=== PATIENT | female | born 1945 | race African-American/Black ===

== ENCOUNTER → 2021-08-30 | Outpatient (CLI) | payer MEDICARE, BC ==
[~2021-08-30] MED LIST: CYMBALTA30 MG PO; FLECAINIDE ACET50 M1 PO; OMEPRAZOLE 20 M20 M1 PO; SYMBICORT160 MCG/4. INH; VENTOLIN HFA 1818 GM INH; XANAX 0.5 MG0.5 MG PO
== END ==
LOC: M.LAB 13:17
PROVIDERS: ATTEND Internal Medicine Gastroenterology
DX: Z20.822 Contact with and (suspected) exposure to COVID-19 (principal)